=== PATIENT | male | born 1960 | race African-American/Black ===

== ENCOUNTER 2018-01-09 07:50 | Day surgery (SDC) | payer BC ==
[2018-01-09] MEDS ORDERED: PROPOFOL 80 ML (09:41)
== END 2018-01-09 13:04 | disposition home or self-care (01) ==
LOC: GIL 07:50
DX: K92.1 Melena (principal); K21.9 Gastro-esophageal reflux disease without esophagitis; K44.9 Diaphragmatic hernia without obstruction or gangrene; D12.0 Benign neoplasm of cecum; K29.70 Gastritis, unspecified, without bleeding; K64.8 Other hemorrhoids
CPT/HCPCS: 43239